=== PATIENT | male | born 2000 | race Caucasian/White ===

== ENCOUNTER 2023-02-18 08:09 | Emergency (ER) | payer OTHER, SELFPAY ==
--- NOTE | 2023-02-18 08:23 | ED.ABDPAIN ---
HPI - Abdominal Pain General Chief Complaint: Abdominal Pain Stated Complaint: vomiting up blood,abdomen pain Time Seen by Provider: 02/18/23 08:23 Source: patient Mode of arrival: ambulatory Limitations: no limitations History of Present Illness HPI narrative: 22 yo M presents with c/o vomiting blood and RUQ pain for 2 wks. Pt is an alcoholic. Was last in rehab in [place] May 2022 to October 2022. Relapsed approx. 1 month ago. When ABD pain and vomiting started he started drinking shots of vodka to make him feel better. Scheduled to go back to [place] for rehab in 2 days. Will need medical clearance now due to these symptoms. Afebrile. Normal BMs, no blood in stool. All systems reviewed and negative except as noted above. Related Data Home Medications Medication Instructions Recorded Confirmed mirtazapine 15 mg tablet 15 mg PO DAILY 02/18/23 02/18/23 trazodone 50 mg tablet 50 mg PO DAILY 02/18/23 02/18/23 Allergies Allergy/AdvReac Type Severity Reaction Status Date / Time No Known Allergies Allergy Unknown Uncoded 02/18/23 08:27 Review of Systems Review of Systems: CONSTITUTIONAL: Denies fever, chills, or sweats. EYES: Denies visual changes, redness, or discharge. ENT: Denies rhinorrhea, congestion, sore throat, or otalgia. CARDIOVASCULAR: Denies chest pain, palpitations, or edema. RESPIRATORY: Denies cough or dyspnea. GASTROINTESTINAL: Reports abdominal pain, nausea, vomiting blood. Denies diarrhea, blood in stool. GENITOURINARY: Denies dysuria or hematuria. SKIN: Denies rash or itching. MUSCULOSKELETAL: Denies back pain, joint pain, or myalgia. NEUROLOGIC: Denies headache, numbness, or weakness. PSYCHIATRIC: Denies anxiety or depression. All other systems reviewed are negative, except as documented in HPI. PMFSH Comments At time of signature, agree with nursing past medical, surgical, social and family history. There is no relevant family history pertinent to the presenting complaint. Exam Narrative: GENERAL: This is a well-nourished, well-developed patient, in no apparent distress. HEAD: normocephalic, atraumatic. EYES: PERRL. Sclera clear/white. Vision is grossly intact. EARS: External ears normal NOSE: External nose normal NECK: Neck supple, non-tender without lymphadenopathy, masses or thyromegaly. CARDIOVASCULAR: Regular rate and rhythm without murmurs, gallops, or rubs. RESPIRATORY: Clear to auscultation. Breath sounds equal bilaterally. No wheezes, rales, or rhonchi. GASTROINTESTINAL: Right upper quadrant tenderness on palpation. Abdomen soft, nondistended. Bowel sounds are active. No palpable masses. SKIN: warm, Dry, intact with no suspicious lesions or rash, good texture and turgor. NEURO: awake, alert, and oriented to person, place and time. There were no obvious focal neurologic abnormalities. EXTREMITIES: No joint tenderness, effusion, or edema noted. Course Course Level of Care: Express Care Visit Vital Signs Vital signs: Vital Signs Temperature 36.8 C 02/18/23 08:25 Pulse Rate 79 02/18/23 08:25 Respiratory Rate 20 02/18/23 08:25 Blood Pressure 139/92 H 02/18/23 08:25 Pulse Oximetry 99 02/18/23 08:25 Oxygen Delivery Room Air 02/18/23 08:25 Temperature 36.8 C 02/18/23 08:27 Pulse Rate 79 02/18/23 08:27 Respiratory Rate 20 02/18/23 08:27 Blood Pressure 139/92 H 02/18/23 08:27 Pulse Oximetry 99 02/18/23 08:27 Oxygen Delivery Room Air 02/18/23 08:27 Reviewed MDM - Abdominal Pain MDM Narrative Medical decision making narrative: Patient is aware of diagnosis, understands and agrees to treatment plan. Anticipatory guidance given. Patient agrees to follow-up as directed and is aware of reasons to seek care at the emergency department. Portions of this record may have been created with voice recognition software Recommend patient go to ER for labs, CT scan. patient going home 1st prior to going to ER to discuss with h
[2023-02-18 08:25] VITALS: BP 139/92; PULSE 79; RESP 20; TEMP 36.8; O2SAT 99
[2023-02-18 08:27] VITALS: BP 139/92; PULSE 79; RESP 20; TEMP 36.8; O2SAT 99
== END 2023-02-18 08:35 | disposition left against medical advice (07) ==
PROVIDERS: Emergency Provider Nurse Practitioner Family; PCP Physician Assistant
DX: K92.0 Hematemesis (principal)
CPT/HCPCS: 99211; G0463